=== PATIENT | male | born 1955 | race Caucasian/White ===

== ENCOUNTER 2016-12-05 20:44 | Emergency (ER) | payer OTHER ==
[2016-12-05] MEDS: Sodium Chloride 0.9% 2,000 ML IV ONE ×2 (21:00→22:17)
[2016-12-05] MEDS ORDERED: Sodium Chloride 0.9% 10 ML Syringe FLUSH PRN (21:27)
[2016-12-05] MEDS ORDERED: Ondansetron 4 MG/2 ML SDV IVPUSH ONE (21:28)
--- NOTE | 2016-12-05 21:37 | EDM.PDOC ---
ED HPI GENERAL MEDICAL PROBLEM - General Chief Complaint: Gastrointestinal Problem Stated Complaint: VOMITING,DIARRHEA Time Seen by Provider: 12/05/16 21:15 Source of Information: Reports: Patient History Limitations: Reports: No Limitations - History of Present Illness INITIAL COMMENTS - FREE TEXT/NARRATIVE: Luca is a 61-year-old male with a history of C. difficile who presents to the emergency department today with abrupt onset of nausea and vomiting after having a cookie dough blizzard 2 hours prior. Patient reported a sudden onset of midepigastric pain followed by several episodes of vomiting and diarrhea. Patient on arrival here reports he is starting to feel better, his family reports that his color has improved. Patient denies any current abdominal pain, he denies any hematochezia or blood in his emesis. Patient denies any fever, he did complain of chills while vomiting, he denies any chest pain or shortness of breath. Onset: Today, Sudden abdomen Pain Score (Numeric/FACES): 4 - Related Data Allergies Allergy/AdvReac Type Severity Reaction Status Date / Time No Known Allergies Allergy Verified 12/05/16 21:04 Home Meds: Home Meds Finasteride 1 mg PO DAILY 12/05/16 [History] Past Medical History Oncologic (Cancer) History: Reports: Prostate - Infectious Disease History Infectious Disease History: Reports: C-Difficile - Past Surgical History GI Surgical History: Reports: Hernia Repair/Other, Other (See Below) Other GI Surgeries/Procedures: cdiff 05/12 Musculoskeletal Surgical History: Reports: Other (See Below) Other Musculoskeletal Surgeries/Procedures:: achilles tendon rupture Social & Family History - Tobacco Use Smoking Status *Q: Never Smoker - Caffeine Use Caffeine Use: Reports: Soda - Recreational Drug Use Recreational Drug Use: No ED ROS GENERAL - Review of Systems Review Of Systems: ROS reveals no pertinent complaints other than HPI. ED EXAM, GI/ABD - Physical Exam Exam: See Below Exam Limited By: No Limitations General Appearance: Alert, WD/WN Nose: Normal Inspection Throat/Mouth: Normal Inspection, Normal Oropharynx Head: Atraumatic Neck: Normal Inspection, Supple, Non-Tender Respiratory/Chest: No Respiratory Distress, Lungs Clear Cardiovascular: Normal Peripheral Pulses, Regular Rate, Rhythm, No Murmur GI/Abdominal Exam: Normal Bowel Sounds, Soft, Non-Tender, No Organomegaly, No Distention Back Exam: Normal Inspection Extremities: Normal Inspection, Normal Range of Motion, Non-Tender Neurological: Alert, Oriented, CN II-XII Intact Psychiatric: Normal Affect, Normal Mood Skin Exam: Warm, Dry, Intact, Normal Color Course - Vital Signs Last Recorded V/S: Last Vital Signs Temp 37.4 C 12/05/16 21:05 Pulse 64 12/05/16 21:05 Resp 16 12/05/16 21:05 BP 140/79 12/05/16 21:05 Pulse Ox 95 12/05/16 21:05 Luca is a 61-year-old male who presents to the emergency department today with complaints of sudden onset of vomiting and diarrhea. Patient's symptoms were preceded with midepigastric pain. On arrival here, patient reports his pain has improved. Patient's family reports that his color has improved as he was pale prior to arrival here. Please refer to history of present illness and focused exam. Considering the abrupt onset of patient's symptoms 2 hours after he ate a cookie dough blizzard, it is likely that this is food poisoning. Viral gastroenteritis is in the differential. Patient is not tender on exam here, he has a negative Ortiz sign making an acute cholecystitis unlikely. Peripheral IV was established and patient was given 2 L of normal saline in the emergency department with 8 milligrams of Zofran and was able to tolerate oral fluids with no further vomiting. Blood work was obtained, CBC returns with a mild leukocytosis with a left shift, hemoglobin stable at 15.6. CMP returns with a chloride of 109 and an anion gap of 16.2. Glucose is mildly elevated at 130. Patient's liver function tests are within normal limits, his bilirubin is mildly elevated at 2.4. Patient is feeling much better here after fluids and Zofran, and feel he is stable to be discharged home. If his symptoms return or if he has any significant abdominal pain I did advise him to return to the emergency department. Patient to follow-up with his primary care in the next week as needed. I we'll send patient home with a prescription for Zofran and encouraged him to drink plenty of fluids. Patient is family were agreeable to plan of care patient was discharged in stable condition. - Orders/Labs/Meds Orders: Active Orders 24 hr Category Date Time Status Peripheral IV Care [RC] . DIRECTED Care 12/05/16 21:27 Active Sodium Chloride 0.9% [Normal Saline] 2,000 ml Med 12/05/16 21:28 Active IV .BOLUS Sodium Chloride 0.9% [Saline Flush] Med 12/05/16 21:27 Active 10 ml FLUSH ASDIRECTED PRN Peripheral IV Insertion Adult [OM.PC] Routine Oth 12/05/16 21:27 Ordered Medication Orders Sodium Chloride (Normal Saline) 2,000 mls @ 999 mls/hr IV .BOLUS ONE Stop: 12/05/16 23:28 Last Admin: 12/05/16 21:00 Dose: 999 mls/hr Sodium Chloride (Saline Flush) 10 ml FLUSH ASDIRECTED PRN PRN Reason: Keep Vein Open Last Admin: 12/05/16 21:48 Dose: 10 ml Labs: Laboratory Tests 12/05/16 12/05/16 Range/Units 21:39 21:39 WBC 11.4 H (4.5-11.0) K/uL RBC 5.11 (4.30-5.90) M/uL Hgb 15.6 H (12.0-15.0) g/dL Hct 45.6 (40.0-54.0) % MCV 89 (80-98) fL MCH 31 (27-31) pg MCHC 34 (32-36) % Plt Count 267 (150-400) K/uL Neut % (Auto) 90 H (36-66) % Lymph % (Auto) 3 L (24-44) % [place] % (Auto) 6 (2-6) % Eos % (Auto) 0 L (2-4) % Baso % (Auto) 0 (0-1) % Sodium 143 (140-148) mmol/L Potassium 4.2 (3.6-5.2) mmol/L Chloride 109 H (100-108) mmol/L Carbon Dioxide 22 (21-32) mmol/L Anion Gap 16.2 H (5.0-14.0) mmol/L BUN 15 (7-18) mg/dL Creatinine 1.2 (0.8-1.3) mg/dL Est Cr Clr Drug Dosing 73.98 mL/min Estimated GFR (MDRD) > 60 (>60) Glucose 130 H (74-106) mg/dL Calcium 8.5 (8.5-10.1) mg/dL Total Bilirubin 2.4 H (0.2-1.0) mg/dL AST 21 (15-37) U/L ALT 22 (12-78) U/L Alkaline Phosphatase 67 (46-116) U/L Total Protein 7.5 (6.4-8.2) g/dL Albumin 3.7 (3.4-5.0) g/dL Globulin 3.8 H (2.3-3.5) g/dL Albumin/Globulin Ratio 1.0 L (1.2-2.2) Lipase 178 (73-393) U/L Meds: Medications Generic Name Dose Route Start Last Admin Trade Name Freq PRN Reason Stop Dose Admin Sodium Chloride 2,000 mls @ 999 mls/hr 12/05/16 21:28 12/05/16 21:00 Normal Saline IV 12/05/16 23:28 999 mls/hr .BOLUS ONE Administration Sodium Chloride 10 ml 12/05/16 21:27 12/05/16 21:48 Saline Flush FLUSH 10 ml ASDIRECTED PRN Administration Keep Vein Open Discontinued Medications Generic Name Dose Route Start Last Admin Trade Name Freq PRN Reason Stop Dose Admin Ondansetron HCl 8 mg 12/05/16 21:28 12/05/16 21:51 Zofran IVPUSH 12/05/16 21:29 8 mg ONETIME ONE Administration Ondansetron HCl Confirm 12/05/16 21:50 Zofran Administered 12/05/16 21:51 Dose 4 mg .ROUTE .STK-MED ONE Departure - Departure Time of Disposition: 23:00 Disposition: Home, Self-Care 01 Condition: Good Clinical Impression: Food poisoning Qualifiers: Encounter type: initial encounter Injury intent: accidental or unintentional Qualified Code(s): T62.91XA - Toxic effect of unspecified noxious substance eaten as food, accidental (unintentional), initial encounter - Discharge Information Instructions: Dehydration, Adult, [id number], Food Poisoning, [id number] Forms: ED Department Discharge Additional Instructions: Luca, Make sure you are drinking plenty of fluids. Take Zofran as needed for nausea. If you develop any worsening symptoms return to the ED. Follow up with your primary care provider next week. - My Orders Last 24 Hours: My Active Orders 12/05/16 21:27 Peripheral IV Care [RC] . DIRECTED Sodium Chloride 0.9% [Saline Flush] 10 ml FLUSH ASDIRECTED PRN Peripheral IV Insertion Adult [OM.PC] Routine 12/05/16 21:28 Sodium Chloride 0.9% [Normal Saline] 2,000 ml IV .BOLUS - Assessment/Plan Last 24 Hours: My Active Orders 12/05/16 21:27 Peripheral IV Care [RC] . DIRECTED Sodium Chloride 0.9% [Saline Flush] 10 ml FLUSH ASDIRECTED PRN Peripheral IV Insertion Adult [OM.PC] Routine 12/05/16 21:28 Sodium Chloride 0.9% [Normal Saline] 2,000 ml IV .BOLUS
[2016-12-05] MEDS ORDERED: Ondansetron 4 MG/2 ML SDV ONE (21:50)
[2016-12-05 22:20] VITALS: BP 116/71
== END 2016-12-05 23:20 | disposition home or self-care (01) ==
LOC: JP.ED 20:44
DX: T62.8X1A Toxic effect of other specified noxious substances eaten as food, accidental (unintentional), initial encounter (principal); R11.10 Vomiting, unspecified; Z79.899 Other long term (current) drug therapy; Z98.890 Other specified postprocedural states
CPT/HCPCS: 36415; 80053; 83690; 85025; 96361; 96374; 99284; J2405; J7040; J7050